=== PATIENT | female | born 1980 | race Caucasian/White ===

== ENCOUNTER 2016-11-28 07:47 | Emergency (ER) | payer OTHER ==
[2016-11-28] MEDS ORDERED: AMOXICILLIN TRIHYDRATE 250 MG CAPSULE ONE (08:55)
[2016-11-28] MEDS ORDERED: HYDROCODONE/ACETAMINOPHEN 5/325MG TABLET ONE (08:56)
== END 2016-11-28 09:06 | disposition home or self-care (01) ==
LOC: ED 07:47
DX: K04.7 Periapical abscess without sinus (principal); F17.210 Nicotine dependence, cigarettes, uncomplicated
CPT/HCPCS: 99283 ×2; A9270 ×2

== ENCOUNTER 2016-12-23 08:03 | Emergency (ER) | payer OTHER | END 2016-12-23 09:01 | disposition home or self-care (01) | LOC: ED 08:03 | DX: J11.1 Influenza due to unidentified influenza virus with other respiratory manifestations (principal); H10.9 Unspecified conjunctivitis; E05.00 Thyrotoxicosis with diffuse goiter without thyrotoxic crisis or storm; F17.210 Nicotine dependence, cigarettes, uncomplicated ==